=== PATIENT | male | born 1970 | race Caucasian/White ===

== ENCOUNTER 2018-04-09 05:20 | Inpatient (IN) | payer BC ==
[2018-04-06 18:50] VITALS: BMI 31.8
[~2018-04-09] VITALS: Ht 170.2 cm; Wt 93.9 kg
[2018-04-09] VITALS (37 sets, daily range): BP systolic 114–156; BP diastolic 63–99; PULSE 78–106; RESP 12–25; Ht 170.2 cm; Wt 93.9 kg
[~2018-04-09 05:20] MED LIST: ALBU18HF INHALATION; AMLO2.5T2 PO; OXYM15SP34 NASAL
[2018-04-09] MEDS ORDERED: TRANEXAMIC ACID 1GM/100ML(PMX) 100 ML IVPB ONE (06:00)
[2018-04-09] MEDS ORDERED: BUPIVACAINE 0.5% (SDV) 30 ML, morphine SULFATE (PF) 8 MG, EPINEPHrine 0.3 MG, KETOROLAC... IRR SCH ×7 (06:00)
[2018-04-09] MEDS ORDERED: CEFAZOLIN 2 GM/50 ML (PMX) 50 ML IVPB ONE (06:00)
[2018-04-09] MEDS ORDERED: DEXAMETHASONE 1 MG TAB PO ONE (06:00)
[2018-04-09] MEDS ORDERED: GABAPENTIN 300 MG CAP PO ONE (06:00)
[2018-04-09] MEDS ORDERED: SOD CHLORIDE 0.9% 100 ML, TRANEXAMIC ACID 3,000 MG IRR ONE ×2 (06:00)
--- NOTE | 2018-04-09 06:01 | HPN ---
Date/Time of Note Date/Time of Note DATE: 04/09/18 TIME: 06:01 Interval H&P Admission Note Pt. seen H&P reviewed: No system changes SEAMUS TEMPLE MD Apr 09, 2018 06:01
--- NOTE | 2018-04-09 06:07 | OPR ---
Date/Time of Note Date/Time of Note DATE: 04/09/18 TIME: 06:02 Operative Report Procedure Date: Apr 09, 2018 Preoperative Diagnosis Left hip primary arthritis Postoperative Diagnosis Left hip primary arthritis Operation/Procedure Performed 1. Left total hip arthroplasty 2. Injection of PRP Surgeon see signature line Parking Enforcement Manager Oneal Salcedo PA-C Second Parking Enforcement Manager: DALLIN PERRY Anesthesia Type: general Estimated Blood Loss: 150 - 200 ml's Transfusion none Specimen None Grafts/Implants See op note Complications none Pt Condition Post Procedure: stable Disposition: PACU Procedure Description LAMP WIRER SURGEON: Oneal Salcedo PA-C was asked to be present at my request as a result of the complexity associated with this procedure including positioning of the extremity, positioning of the instrumentation and protection of the neurovascular structures. In my opinion, the assistance offered by a piano technician is insufficient and he should be compensated for his time. PROCEDURE IN DETAIL: Following the administration of general endotracheal anesthesia supplemented with a spinal anesthetic, the patient was placed in the supine position. The left antecubital fossa was then prepped in the usual sterile fashion and 60 cc of blood were withdrawn. The blood was passed off to the manufacturers representative from the company to prepare the PRP solution. The left lower extremity was then prepped and draped in the usual sterile fashion. A plaque maker radiograph was obtained for preliminary limb length and femoral size as well as acetabular size. A lateral incision was then made exposing the tensor fascia the fascia was incised the tensor was retracted laterally and the vessels were cauterized. The anterior capsule was then identified and prepared. A capsulectomy was then performed and the femoral head was then evaluated. Severe arthritic changes were noted. A femoral head cut was then made in the appropriate degree of version and inclination. The acetabulum was then exposed and a capsulectomy and labrectomy were completed. The central portion was then entered and serially reamed up to the 51 mm size. A Depuy [place] cup which was 52 mm in size with a standard liner was then fit into position with solid fixation. A 30 mm screw was used for additional fixation. Attention was then directed to the femur, the femur was exposed and prepared. The canal was entered and serially reamed up to the size 5 Actis stem. The femoral canal was then thoroughly irrigated and prepared. The PRP solution was then instilled into the femoral canal. A size 5 Depuy [place] stem was then inserted with solid fixation. A 36 mm, +1.5 mm femoral head, which was Oxinium was then inserted. The leg was taken through full range of motion with no evident instability. In addition, radiographs revealed excellent position with reproduction of the limb lengths within a millimeter. The wound was irrigated thoroughly. The wound was then closed in layers and a Prenio for the final cover. This was watertight. Estimated blood loss was procedure was 200 cc. Postoperative radiographs will be obtained in the recovery room. SEAMUS TEMPLE MD Apr 09, 2018 06:07
[2018-04-09] MEDS ORDERED: POLYMYXIN/BACITRACIN 1L IRRIG ONE (06:46)
[2018-04-09] MEDS ORDERED: THROMBIN (BOVINE) 5,000 UNIT VIAL TP ONE (06:46)
[2018-04-09] MEDS ORDERED: CA CHLORIDE (GM) 10% 10 ML INJ ONE (06:46)
[2018-04-09] MEDS ORDERED: LACTATED RINGER'S 1,000 ML IV* SCH (07:00)
--- NOTE | 2018-04-09 07:01 | PREAC ---
Date/Time of Note Date/Time of Note DATE: 04/09/18 TIME: 07:00 Anesthesia Eval and Record Evaluation Time Pre-Procedure Interview DATE: 04/09/18 TIME: 07:00 Age 48 Sex male NPO: 8 hrs Preoperative diagnosis Left Hip OA Planned procedure Left Anterior Total Hip Replacement Past Medical History Past Medical History: Includes Cardio: HTN Pulm: Asthma Musculoskeletal: Osteoarthritis GI: Obesity Surgery & Anesthesia Issues No known issue Meds Anticoagulation: No Beta Bailee within 24 hr: No Reason Beta Bailee not given: Pt. not on B-Bailee Reported Medications Oxymetazoline Hcl* (Afrin [place]*) 0.05% - 15 Ml [place], 2 SPRAYS NASAL BID, #1 EA to each nostril 04/06/18 Albuterol Sulfate* (Ventolin HFA*) 18 Gm Hfa.aer.ad, 2 PUFF INHALATION Q4H, #1 INHALER 04/06/18 Amlodipine Besylate* (Norvasc*) 2.5 Mg Tablet, 7.5 MG PO DAILY, TAB 04/06/18 Current Medications Bupivacaine HCl/ Morphine Sulfate/ Epinephrine/ Ketorolac Tromethamine/ Clonidine/Sodium Chloride/ Vancomycin HCl INTRA-OP IRR ; Start 04/09/18 at 06:00 Lactated Ringer's 1,000 ml @ 0 mls/hr Q0M IV* ; Start 04/09/18 at 07:00 Meds reviewed: Yes Allergies Coded Allergies: No Known Allergy (Unverified , 04/09/18) Allergies Reviewed: Yes Labs/Studies Labs Reviewed: Reviewed by anesthesiologist test: N/A Studies: ECG (n/a), CXR (n/a) Pre-procedure Exam Last vitals Vital Signs Date Temp Pulse Resp B/P (MAP) Pulse Ox O2 O2 Flow FiO2 Time Delivery Rate 04/09/18 98.9 96 18 134/96 100 Room Air 06:02 (109) Airway: Adequate mouth opening, Adequate thyromental dist Mallampati: Mallampati II Teeth: Normal Lung: Normal Heart: Normal ASA Physical Status ASA physical status: 2 Emergency: None Planned Anesthetic General/MAC: ETT, LMA Neuraxial: Spinal Nerve block: Other (Left Fascia Iliaca GBloakc) Planned Pain Management Sub-arachniod narcotics, Single shot nerve block, Parenteral pain med Pre-operative Attestations Prior to commencing anesthesia and surgery, the patient was re-evaluated, there was verification of: *The patient's identity *The results of appropriate recent lab work and preoperative vital signs *The above evaluation not changing prior to induction *Anesthetic plan, risk benefits, alternative and complications discussed with patient/family; questions answered; patient/family understands, accepts and wishes to proceed. PRINCESS COX MD Apr 09, 2018 07:01
[2018-04-09] MEDS ORDERED: morphine SULFATE/PF (10 MG/10 ML) INJ ONE (07:04)
[2018-04-09] MEDS ORDERED: CEFAZOLIN 1 GM INJ ONE (07:04)
[2018-04-09] MEDS ORDERED: ROCURONIUM 50 MG INJ ONE (07:04)
[2018-04-09] MEDS ORDERED: DESFLURANE 15 MIN ONE (07:04)
[2018-04-09] MEDS ORDERED: ROPIVACAINE 0.5 % 30 ML VIAL ONE (07:04)
[2018-04-09] MEDS ORDERED: PROPOFOL 20 ML ONE (07:04)
[2018-04-09] MEDS ORDERED: MIDAZOLAM 1 MG/ML 2 ML INJ ONE (07:05)
[2018-04-09] MEDS ORDERED: TRANEXAMIC ACID 1GM/100ML(PMX) 100 ML ONE (07:08)
[2018-04-09] MEDS ORDERED: PHENYLephrine (100 MCG/ML) 5ML SYG ONE (07:16)
[2018-04-09] MEDS ORDERED: KETOROLAC 30 MG INJ ONE (07:41)
[2018-04-09] MEDS ORDERED: METOCLOPRAMIDE 10 MG INJ ONE (07:41)
[2018-04-09] MEDS ORDERED: ONDANSETRON 4 MG INJ ONE (07:41)
[2018-04-09] MEDS ORDERED: DEXAMETHASONE 4 MG/ML 5 ML INJ ONE (07:41)
[2018-04-09] MEDS ORDERED: EPHEDrine SULFATE 50 MG/5 ML SYG ONE (07:43)
[2018-04-09] MEDS ORDERED: ACETAMINOPHEN 500 MG TAB PO PRN (08:00)
[2018-04-09] MEDS ORDERED: OXYCODONE/ACETAMINOPHEN (5/325) TAB PO PRN ×2 (08:00)
[2018-04-09] MEDS ORDERED: morphine 2 MG INJ IV PRN ×2 (08:00)
[2018-04-09] MEDS ORDERED: EPHEDrine SULFATE 50 MG/5 ML SYG IV PRN (08:00)
[2018-04-09] MEDS ORDERED: HYDROmorphONE 1 MG/5 ML IV SYRINGE IV PRN ×3 (08:00)
[2018-04-09] MEDS ORDERED: FENTAnyl 50 MCG/ML VIAL IV PRN ×3 (08:00)
[2018-04-09] MEDS ORDERED: HYDROCODONE/APAP (5/325) TAB PO PRN (08:00)
[2018-04-09] MEDS ORDERED: hydrALAzine 20 MG INJ IV PRN (08:00)
[2018-04-09] MEDS ORDERED: ONDANSETRON 4 MG INJ IV PRN ×3 (08:00→09:30)
[2018-04-09] MEDS ORDERED: NALBUPHINE HCL (10 MG/1 ML) INJ IV PRN (08:00)
[2018-04-09] MEDS ORDERED: HYDROmorphONE 0.5 MG/0.5 ML SYG IV PRN ×2 (08:00)
[2018-04-09] MEDS ORDERED: DIPHENHYDRAMINE 50 MG INJ IV PRN ×3 (08:00→09:30)
[2018-04-09] MEDS ORDERED: METOCLOPRAMIDE 10 MG INJ IV PRN (08:00)
[2018-04-09] MEDS ORDERED: LABETALOL HCL 20MG INJ IV PRN (08:00)
[2018-04-09] MEDS ORDERED: ALBUTEROL 0.083% (NEB) 2.5 MG/3 ML AMP HHN PRN (08:00)
[2018-04-09] MEDS ORDERED: MEPERIDINE 25 MG INJ IV PRN (08:00)
[2018-04-09] MEDS ORDERED: NALOXONE (0.4 MG/ML) INJ IV PRN (08:00)
--- NOTE | 2018-04-09 09:13 | PDOCDIS ---
Discharge Instructions DIAGNOSIS Discharge Diagnosis Primary hip arthritis CONDITION [id number] Patient Condition: [id number] Good HOME CARE INSTRUCTIONS: [id number] Diet Instructions: [id number] Regular ACTIVITY: [id number] Activity Restrictions: [id number] Rest between Activity Keep Limb Elevated [id number] Bathing Restrictions: [id number] Shower FOLLOW UP/APPOINTMENTS Follow-up Plan 2 weeks in the office SCHOOL/WORK RELEASE May return to School/Work with: With Restrictions School/Work Release Comment: No hip extension for 12 weeks SEAMUS TEMPLE MD Apr 09, 2018 09:13
[2018-04-09] MEDS ORDERED: oxyCODONE 5 MG TAB PO PRN ×2 (09:30)
[2018-04-09] MEDS ORDERED: MAGNESIUM HYDROXIDE 30ML CUP PO PRN (09:30)
[2018-04-09] MEDS ORDERED: ZOLPIDEM 5 MG TAB PO PRN (09:30)
[2018-04-09] MEDS ORDERED: NACL 0.9% 3 ML SYG IV SCH (09:30)
[2018-04-09] MEDS ORDERED: HYDROmorphONE 1 MG/ML SYG IV PRN (09:30)
[2018-04-09] MEDS: LACTATED RINGER'S 1,000 ML IV SCH ×3 (09:30→19:30)
[2018-04-09] MEDS: CEFAZOLIN 1 GM/50 ML (PMX) 50 ML IVPB SCH ×2 (09:52→18:11)
[2018-04-09] MEDS: ACETAMINOPHEN 1000MG/100ML IV 100 ML IVPB SCH ×2 (10:05→18:11)
--- NOTE | 2018-04-09 10:08 | PAC ---
Date/Time of Note Date/Time of Note DATE: 04/09/18 TIME: 10:07 Post-Anesthesia Notes Post-Anesthesia Note Last documented vital signs Vital Signs Date Temp Pulse Resp B/P (MAP) Pulse Ox O2 O2 Flow FiO2 Time Delivery Rate 04/09/18 98.6 82 14 147/89 98 Room Air 09:41 (108) 04/09/18 2.0 09:26 04/09/18 98.6 09:12 Activity: WNL Respiratory function: WNL Cardiovascular function: WNL Mental status: Baseline Pain reasonably controlled: Yes Hydration appropriate: Yes Nausea/Vomiting absent: Yes PRINCESS COX MD Apr 09, 2018 10:08
[2018-04-09] MEDS: DEXAMETHASONE 2 MG TAB PO SCH ×2 (13:15→18:12)
[2018-04-09] MEDS: ALBUTEROL HFA 8 GM INHALER INH SCH ×3 (14:03→20:47)
[2018-04-09] MEDS: SENNA/DOCUSATE NA (8.6MG/50MG) TAB PO SCH (20:47)
[2018-04-09] MEDS: OXYMETAZOLINE 0.05% 15 ML NAS SPRAY NASAL SCH (20:47)
[2018-04-09] MEDS ORDERED: GABAPENTIN 300 MG CAP PO SCH (21:00)
[2018-04-10] MEDS: DEXAMETHASONE 2 MG TAB PO SCH ×2 (00:17→05:22)
[2018-04-10] MEDS: ALBUTEROL HFA 8 GM INHALER INH SCH ×4 (00:19→13:36)
[2018-04-10] MEDS: LACTATED RINGER'S 1,000 ML IV SCH ×2 (00:21→13:36)
[2018-04-10 00:29] VITALS: BP 140/86; PULSE 88; RESP 19
[2018-04-10] MEDS: CEFAZOLIN 1 GM/50 ML (PMX) 50 ML IVPB SCH (00:31)
[2018-04-10] MEDS: ACETAMINOPHEN 1000MG/100ML IV 100 ML IVPB SCH (01:19)
[2018-04-10 05:24] VITALS: BP 125/81; RESP 18
[2018-04-10 07:10] VITALS: BP 127/85; PULSE 76; RESP 17
--- NOTE | 2018-04-10 07:18 | PN ---
Date/Time of Note Date/Time of Note DATE: 04/10/18 TIME: 07:11 Subjective Sitting comfortably in no distress. Denies any pain. No chest pain or difficulty breathing. Ready to go home. Has post-op appt. Objective Vitals Vital Signs Date Temp Pulse Resp B/P (MAP) Pulse Ox O2 O2 Flow FiO2 Time Delivery Rate 04/10/18 98.2 18 125/81 95 Room Air 05:24 (96) 04/10/18 88 00:29 04/09/18 2.0 13:30 Intake and Output 04/09/18 04/09/18 04/10/18 1414:59 22:59 06:59 IntakeIntake Total 2900 ml 1030 ml 1890 ml OutputOutput Total 1200 ml 1000 ml 1900 ml BalanceBalance 1700 ml 30 ml -10 ml PT AAOx3. Wound is dry without erythema/edema/pus and covered with Prineo dressing. Can wiggle toes. Has sensation distally. Results Result Diagram: 04/10/18 0432 Medications Medications Current Medications Lactated Ringer's 1,000 ml @ 0 mls/hr Q0M IV* ; Start 04/09/18 at 07:00 Hydromorphone HCl (Dilaudid) 0.2 mg Q2H PRN IV .PAIN 1-5; Start 04/09/18 at 08: 00; Stop 04/10/18 at 07:03 Hydromorphone HCl (Dilaudid) 0.4 mg Q2H PRN IV .PAIN 6-10; Start 04/09/18 at 08:00; Stop 04/10/18 at 07:03 Morphine Sulfate (morphine) 2 mg Q2H PRN IV .PAIN 1-5; Start 04/09/18 at 08:00; Stop 04/10/18 at 07:03 Morphine Sulfate (morphine) 4 mg Q2H PRN IV .PAIN 6-10; Start 04/09/18 at 08:00; Stop 04/10/18 at 07:03 Acetaminophen (Tylenol Tab) 500 mg Q4H PRN PO .PAIN 1-3; Start 04/09/18 at 08:00; Stop 04/10/18 at 07:03 Acetaminophen/ Hydrocodone Bitart ([place] (5/325)) 1 tab Q4H PRN PO .PAIN 4-6; Start 04/09/18 at 08:00; Stop 04/10/18 at 07:03 Diphenhydramine HCl (Benadryl) 25 mg Q4H PRN IV .PRURITUS; Start 04/09/18 at 08:00; Stop 04/10/18 at 07:03 Nalbuphine HCl ([place]) 10 mg Q4H PRN IV .PRURITUS; Start 04/09/18 at 08:00; Stop 04/10/18 at 07:03 Ondansetron HCl (Zofran Inj) 4 mg Q6H PRN IV .NAUSEA/VOMITING; Start 04/09/18 at 08:00; Stop 04/10/18 at 07:03 Naloxone HCl (Narcan) 0.2 mg Q2M PRN IV .RESP RATE; Start 04/09/18 at 08:00; Stop 04/10/18 at 07:03 Miscellaneous Information (* Miscellaneous Pharmacy Order) DURAMORPH: 0.2 MG EPIDU... GIVEN NEURAXIAL XX ; Start 04/09/18 at 08:00; Stop 04/10/18 at 07:03 Albuterol (Ventolin Hfa) 2 puff Q4H RESP THERAPY INH Last administered on 04/10/18at 05:22; Admin Dose 2 PUFF; Start 04/09/18 at 09:30 Amlodipine Besylate (Norvasc) 7.5 mg DAILY PO ; Start 04/10/18 at 09:00 Oxymetazoline HCl (Afrin [place]) 1 spray BID NASAL Last administered on 04/09/18at 20:47; Admin Dose 1 SPRAY; Start 04/09/18 at 21:00 Lactated Ringer's 1,000 ml @ 100 mls/hr Q10H IV Last administered on 04/10/18at 00:21; Admin Dose 100 MLS/HR; Start 04/09/18 at 09:30 Senna/Docusate Sodium (Senokot-S) 1 tab BID PO Last administered on 04/09/18at 20:47; Admin Dose 1 TAB; Start 04/09/18 at 21:00 Simethicone (Mylicon) 80 mg TID PRN PO .GAS; Start 04/09/18 at 09:30 Magnesium Hydroxide (Milk Of Mag) 30 ml BID PRN PO .CONSTIPATION; Start 04/09/18 at 09:30 Magnesium Hydroxide (Milk Of Mag) 30 ml HS PO ; Start 04/11/18 at 21:00 Gabapentin (Neurontin) 300 mg HS PO Last administered on 04/09/18at 20:47; Admin Dose 300 MG; Start 04/09/18 at 21:00 Acetaminophen 100 ml @ 400 mls/hr Q8H IVPB Last administered on 04/10/18at 01:19; Admin Dose 400 MLS/HR; Start 04/09/18 at 09:30; Stop 04/10/18 at 09:29 Oxycodone HCl (Roxicodone) 15 mg Q4H PRN PO .PAIN; Start 04/09/18 at 09:30 Oxycodone HCl (Roxicodone) 10 mg Q4H PRN PO .PAIN; Start 04/09/18 at 09:30 Oxycodone HCl (Roxicodone) 5 mg Q4H PRN PO .PAIN; Start 04/09/18 at 09:30 Hydromorphone HCl (Dilaudid) 1 mg Q4H PRN IV .BREAKTHROUGH PAIN; Start 04/09/18 at 09:30 Ondansetron HCl (Zofran Inj) 4 mg Q6H PRN IV NAUSEA/VOMITING; Start 04/09/18 at 09:30 Diphenhydramine HCl (Benadryl) 25 mg Q6H PRN IV .PRURITUS; Start 04/09/18 at 09:30 Zolpidem Tartrate (Ambien) 10 mg HS PRN PO .INSOMNIA; Start 04/09/18 at 09:30 IV Flush (NS 3 ml) 3 ml per protocol IV ; Start 04/09/18 at 09:30 Aspirin (Ecotrin) 325 mg DAILY PO ; Start 04/10/18 at 09:00 VTE Prophylaxis Risk score (from Nsg)>0 risk: 1 SCD applied (from Nsg): Yes Pharmacological prophylaxis: other Lines/Catheters IV Catheter Type: Peripheral IV [place] in Place: No Assessment/Plan Hospital Course Discharge home after PT eval. Assessment/Plan Discharge home and follow up in office for post-op visit in 2 weeks. Use walker. No extension of left leg. KD RITTER PA-C Apr 10, 2018 07:17
--- NOTE | 2018-04-10 07:24 | DS ---
Date/Time of Note Date/Time of Note DATE: 04/10/18 TIME: 07:20 Discharge Summary Admission/Discharge Info Admit Date/Time Apr 09, 2018 at 05:20 Discharge Date/Time Patient will be discharged today 04/10/2018 after PT evaluation. Discharge Diagnosis S/P left total hip replacement for left hip primary osteoarthritis. Patient Condition: Good Hospital Course PT admitted for left hip primary osteoarthritis and underwent uncomplicated left total hip replacement. Discharge home with walker and instructions after PT eval. Shower okay, no soaking. Home Meds Reported Medications Oxymetazoline Hcl* (Afrin [place]*) 0.05% - 15 Ml [place], 2 SPRAYS NASAL BID, #1 EA to each nostril 04/06/18 Albuterol Sulfate* (Ventolin HFA*) 18 Gm Hfa.aer.ad, 2 PUFF INHALATION Q4H, #1 INHALER 04/06/18 Amlodipine Besylate* (Norvasc*) 2.5 Mg Tablet, 7.5 MG PO DAILY, TAB 04/06/18 Follow-up Plan 2 weeks in the office Primary Care Provider Not On Staff Doctor Time spent on discharge: < 30 minutes Pending Labs Laboratory Tests Test 04/09/18 10:22 04/10/18 04:32 White Blood Count 11.5 10^3/ul (4.8-10.8) 13.0 10^3/ul (4.8-10.8) Red Blood Count 4.85 10^6/ul (4.70-6.10) 4.01 10^6/ul (4.70-6.10) Hemoglobin 14.9 g/dl (14.0-18.0) 12.7 g/dl (14.0-18.0) Hematocrit 44.8 % (42.0-52.0) 36.9 % (42.0-52.0) Mean Corpuscular Volume 92.4 fl (82.0-101.0) 92.0 fl (82.0-101.0) Mean Corpuscular 30.7 pg (29.0-33.0) 31.7 pg (29.0-33.0) Hemoglobin Mean Corpuscular 33.3 g/dl (32.0-37.0) 34.4 g/dl (32.0-37.0) Hemoglobin Concent Red Cell Distribution 13.1 % (11.5-14.5) 13.2 % (11.5-14.5) Width Platelet Count 259 10^3/UL (140-415) 227 10^3/UL (140-415) Mean Platelet Volume 9.9 fl (7.4-10.4) 10.6 fl (7.4-10.4) Immature Granulocytes % 0.500 % (0.001-0.429) 0.600 % (0.001-0.429) Neutrophils % 88.6 % (39.0-77.0) 82.5 % (39.0-77.0) Lymphocytes % 8.1 % (15.0-51.0) 9.2 % (15.0-51.0) Monocytes % 1.4 % (0.0-11.0) 7.5 % (0.0-11.0) Eosinophils % 1.1 % (0.0-7.0) 0.0 % (0.0-7.0) Basophils % 0.3 % (0.0-2.0) 0.2 % (0.0-2.0) Nucleated Red Blood Cells 0.0 /100WBC (0.0-0.0) 0.0 /100WBC (0.0-0.0) % Immature Granulocytes # 0.060 10^3/ul (0.0-0.031) 0.080 10^3/ul (0.0-0.031) Neutrophils # 10.2 10^3/ul (1.6-7.5) 10.7 10^3/ul (1.6-7.5) Lymphocytes # 0.9 10^3/ul (0.8-2.9) 1.2 10^3/ul (0.8-2.9) Monocytes # 0.2 10^3/ul (0.3-0.9) 1.0 10^3/ul (0.3-0.9) Eosinophils # 0.1 10^3/ul (0.0-0.5) 0.0 10^3/ul (0.0-0.5) Basophils # 0.0 10^3/ul (0.0-0.1) 0.0 10^3/ul (0.0-0.1) Nucleated Red Blood Cells 0.0 10^3/ul (0.0-0.0) 0.0 10^3/ul (0.0-0.0) # KD RITTER PA-C Apr 10, 2018 07:24
[2018-04-10] MEDS ORDERED: AMLODIPINE 5 MG TAB PO SCH (09:00)
[2018-04-10] MEDS ORDERED: ASPIRIN (EC) 325 MG TAB PO SCH (09:00)
[2018-04-10] MEDS: SENNA/DOCUSATE NA (8.6MG/50MG) TAB PO SCH (09:14)
[2018-04-10] MEDS: oxyCODONE 5 MG TAB PO PRN ×2 (09:30→15:39)
[2018-04-10] MEDS: OXYMETAZOLINE 0.05% 15 ML NAS SPRAY NASAL SCH (09:30)
[2018-04-10 14:25] VITALS: BP 125/72; PULSE 84; RESP 18
[2018-04-11] MEDS ORDERED: MAGNESIUM HYDROXIDE 30ML CUP PO SCH (21:00)
== END 2018-04-10 15:45 | disposition home or self-care (01) | DRG 470 ==
LOC: REC 05:20 → MS1 13:14
PROVIDERS: ADMIT Orthopaedic Surgery; ATTEND Orthopaedic Surgery
PROC: 0SRB04A Replacement of Left Hip Joint with Ceramic on Polyethylene Synthetic Substitute, Uncemented, Open Approach (ICD-10-PCS; principal; 2018-04-09 07:00)
DX: M16.12 Unilateral primary osteoarthritis, left hip (principal); I10 Essential (primary) hypertension; E66.9 Obesity, unspecified; Z68.32 Body mass index [BMI] 32.0-32.9, adult
CPT/HCPCS: 72170; 73530; 85025; 86999; 87086; 88304; 88311; 97116; 97161; C1713; C1776; J0131; J0171; J0690; J0735; J1100; J1885; J2250; J2274; J2370; J2405; J2765; J2795; J3370; J7120